=== PATIENT | male | born 1975 | race Caucasian/White ===

== ENCOUNTER 2020-06-15 11:35 | Emergency (ER) | payer MEDICARE, MEDICAID, SELFPAY ==
[2020-06-15 11:36] VITALS: BP 158/90; PULSE 113; RESP 16; TEMP 36.6; O2SAT 98; BMI 42.9
--- NOTE | 2020-06-15 11:47 | ED.RN ---
[facility] [phone]. MOTHER'S FRIEND RONAN ELIAS IS HIS LEGAL GUARDIAN PER PT, HER NUMBER [phone]. BROUGHT TO ED BY SGT MCCARTNEY.
--- NOTE | 2020-06-15 12:05 | ED.VIS.PSYCH ---
History of Present Illness Chief Complaint: Mental Health Informant: Patient Context: Gradual Onset Timing: Continuous Associated Symptoms: Negative for: Suicidal Thoughts, Visual Hallucinations, Auditory Hallucinations Narrative: Apparently patient left his nursing home in [facility] in [facility] 3 weeks ago and was reported missing. He states he came here to stay with some friends at one point, something about having a state case in court and is on medications for schizoaffective disorder that he states he has not had in the past 3 weeks. He does not feel well, but he has no specific complaints just malaise. He does want to get back on his medications thinking that might make him feel better. He does not seem delusional or have any specific hallucinations when asked about them, nor is he acting out on anything. Reportedly a guardian has stated that he is not acting himself as a result in the past 3 weeks. - Past Medical History (1) Schizoaffective disorder Status: Chronic (2) Mood disorder Status: Chronic Past Medical History - Allergies and Home Meds Allergies/Adverse Reactions: Allergies No Known Allergies Allergy (Verified 06/15/20 11:41) Primary Care Physician: Helen Montoya,Out of [NON-STAFF] - Smoking Status: Unknown if ever smoked Review of Systems General: Reports: Malaise. Denies: Chills, Fever, Sweats Eyes: Denies: Visual changes - bilaterally, Diplopia ENT: Reports: - - No loss of taste/smell. Denies: Bilateral ear pain, Rhinorrhea, Sore throat Cardiovascular: Denies: Chest pain, Palpitations Respiratory: Denies: Dyspnea, Cough, Dyspnea on exertion Gastrointestinal: Denies: Abdominal pain, Nausea, Vomiting, Diarrhea, Melena, Hematochezia Genitourinary: Denies: Dysuria, Hematuria, Frequency Musculoskeletal: Denies: Myalgias, Back pain, Extremity Pain Skin: Denies: Rash, Wounds Neurological: Denies: Headache, Weakness, Numbness Physical Exam Vital Signs/Narrative: Vital Signs Temp Pulse Resp BP Pulse Ox 06/15/20 11:36 97.8 F 113 H 16 158/90 H 98 Inital Vital Signs reviewed: Yes General: Well nourished, Well developed Head: Normocephalic, Atraumatic Eyes: Perrl, EOMI ENT: Moist mucous membranes, No rhinorrhea Neck: Supple, Nontender, No lymphadenopathy - No thyromegaly or tenderness Cardiovascular: Regular rate, Regular rhythm, No murmurs Respiratory: No distress, CTA bilaterally, Chest nontender Abdomen: Soft, Nontender, Nondistended, Normal bowel sounds Back: Nontender, Normal Inspection Extremities: Nontender, No Edema Skin: Normal color, No rash Neurological: Alert, Oriented x3, Cranial nerves II-XII grossly intact, Normal Strength, Normal Sensation, Normal Gait Psych: Normal Speech Pattern, No suicidal or homicidal ideation, Normal Stable Appropriate Affect, Good Insight, Limited Judgement, - - Disorganized thinking to some degree but able to string thoughts together appropriately Diagnostic/Tx/Re-eval 06/15/20 13:23 Mucosa - Nose SARS-CoV-2 Antigen (Rapid) - Final Laboratory Results 06/15/20 06/15/20 06/15/20 12:14 12:14 12:14 WBC 10.7 RBC 5.29 Hgb 16.1 Hct 47.6 MCV 90.0 MCH 30.4 MCHC 33.8 RDW Std Deviation 42.7 RDW Coeff of Mary 13.1 Plt Count 367 MPV 9.2 Immature Gran % (Auto) 0.200 Neut % (Auto) 67.7 Lymph % (Auto) 22.4 [place] % (Auto) 7.5 Eos % (Auto) 1.8 Baso % (Auto) 0.4 Absolute Neuts (auto) 7.3 Absolute Lymphs (auto) 2.40 Nucleated RBC % 0 Sodium 137 Potassium 3.0 L Chloride 105 Carbon Dioxide 26.0 Anion Gap 6 BUN 6 L Creatinine 0.70 Estim Creat Clear Calc 93.25 Est GFR (MDRD) Af Amer 156 Est GFR (MDRD) Non-Af 129 BUN/Creatinine Ratio 8.6 L Glucose 119 H Calcium 9.1 Total Bilirubin 0.40 AST 54 H ALT 85 H Alkaline Phosphatase 144 H Total Protein 7.9 Albumin 3.7 Globulin 4.2 Albumin/Globulin Ratio 0.9 TSH 0.43 Ur Drug Screen Comment Ethyl Alcohol < 3.0 06/15/20 15:10 WBC RBC Hgb Hct MCV MCH MCHC RDW Std Deviation RDW Coeff of Mary Plt Count MPV Immature Gran % (Auto) Neut % (Auto) Lymph % (Auto) [place] % (Auto) Eos % (Auto) Baso % (Auto) Absolute Neuts (auto) Absolute Lymphs (auto) Nucleated RBC % Sodium Potassium Chloride Carbon Dioxide Anion Gap BUN Creatinine Estim Creat Clear Calc Est GFR (MDRD) Af Amer Est GFR (MDRD) Non-Af BUN/Creatinine Ratio Glucose Calcium Total Bilirubin AST ALT Alkaline Phosphatase Total Protein Albumin Globulin Albumin/Globulin Ratio TSH Ur Drug Screen Comment Ethyl Alcohol Patient is medically clear for psychiatric evaluation. Mental health evaluated, and was in agreement as is his guardian. Accepted at [facility]. His potassium was a little low, I think it is not causing any of his mental health issues today, and it was addressed by giving him some potassium to start replacing. Patient has been cooperative and is medically cleared. ED Disposition - Plan for ED Patient: Disposition: Psychiatric Hospital or Unit Diagnosis: Schizoaffective disorder, Noncompliance with medication regimen Referrals: [facility] Doctor,Out of [NON-STAFF] -
[2020-06-15 12:22] LABS: Absolute Neutrophil Count 7.3 X10^3/uL (2.0-7.7); Basophil# 0.04 X10^3/uL; Basophil% 0.4 % (0-1); Eosinophil# 0.19 X10^3/uL; Eosinophils% 1.8 % (0-5); Hematocrit 47.6 % (40-54); Hemoglobin 16.1 g/dL (13.0-16.5); Lymphocyte % 22.4 % (19-41); Mean Corp Hgb Conc 33.8 g/dL (32-36); Mean Corpuscular Hgb 30.4 pg (27.0-32.0); Mean Platelet Vol. 9.2 fl (6.2-12.0); Monocyte% 7.5 % (0-10); NRBC Flagged by Analyzer 0 % (0-5); Neutrophil # 7.27 X10^3/uL (2.7-7.7); Neutrophil % 67.7 % (47-70); Platelet Count 367 K/mm3 (150-450); RBC Distribution Width CV 13.1 % (11.6-14.6); RBC Distribution Width SD 42.7 fl (35.1-43.9); Red Blood Count 5.29 M/mm3 (4.6-6.2); White Blood Count 10.7 K/mm3 (4.4-11.0)
[2020-06-15 13:12] LABS: ALB/GLOB Ratio 0.9 RATIO (0.9-2.4); AST(SGOT) 54 U/L (15-37); Alanine Aminotransfer ALT/SGPT 85 U/L (16-61); Albumin, Serum 3.7 g/dL (3.2-5.0); Alkaline Phosphatase 144 U/L (45-117); Anion Gap 6 (5-15); BUN 6 mg/dL (7-18); BUN/Creat Ratio 8.6 RATIO (10-20); Calcium,Total 9.1 mg/dL (8.5-10.1); Chloride 105 mmol/L (98-107); EST Glomerular Filtration Rate 129 mL/min (>60); Est Glom Filt Rate - Afr Amer 156 mL/min (>60); Estimated Creatinine Clearance 93.25 ml/min; Globulin 4.2 g/dL (2.2-4.2); Glucose 119 mg/dL (74-106); Protein, Total 7.9 g/dL (6.4-8.2); Sodium Level 137 mmol/L (136-145); Thyroid Stim Hormone (TSH) 0.43 uIU/mL (0.358-3.74)
[2020-06-15 13:16] VITALS: BP 150/90; PULSE 103; RESP 16; O2SAT 96
[2020-06-15 13:37] LABS: Alcohol, Blood (Medical)-Serum < 3.0 mg/dL
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
--- NOTE | 2020-06-15 14:44 | CM.ED ---
SOCIAL WORK Referral faxed and called to [facility]. Will fax [facility] once received. Tangela Young, INSTRUCTOR CREELER, REPORT SPECIALIST
--- NOTE | 2020-06-15 15:10 | CM.ED ---
SOCIAL WORK Patient accepted to [facility] by Dr. Hyde to the ITU. Nurse to call report to . [facility] to set up transport. Call to patient's legal guardian, Berenice Mckeon. Berenice updated on patient's acceptance to [facility]. Tangela Young, GUM SPRAYER, SHOE SALESMAN
[2020-06-15 15:54] LABS: Amphetamine Urine VISTA POSITIVE (<1000 ng/mL); Barbiturate Urine VISTA NEGATIVE (< 200 ng/mL); Benzodiazepine Urine VISTA NEGATIVE (< 200 ng/mL); Cocaine Urine VISTA NEGATIVE (< 300 ng/mL); Ecstacy Urine VISTA NEGATIVE (< 500 ng/mL); Methadone Urine VISTA NEGATIVE (< 300 ng/mL); PCP Urine VISTA NEGATIVE (< 25 ng/mL); THC Urine VISTA NEGATIVE (< 50 ng/mL); Vista UDS pH Range 6
[2020-06-15 16:05] VITALS: BP 150/90; PULSE 103; RESP 16; O2SAT 96
[2020-06-15 16:10] VITALS: BP 142/92; PULSE 83; RESP 16; TEMP 35.5; O2SAT 96
== END 2020-06-15 16:17 ==
PROVIDERS: Emergency Provider Emergency Medicine
DX: F25.9 Schizoaffective disorder, unspecified (principal); F39 Unspecified mood [affective] disorder; E87.6 Hypokalemia; R53.81 Other malaise; Z91.14 Patient's other noncompliance with medication regimen
CPT/HCPCS: 80053; 80307; 80320; 84443; 85025; 87426; 99285; G0480